=== PATIENT | male | born 1980 | race Caucasian/White ===

== ENCOUNTER 2020-06-04 13:46 | Emergency (ER) | payer OTHER, SELFPAY ==
[2020-06-04 13:55] VITALS: BP 123/83; PULSE 91; RESP 14; TEMP 36.4; O2SAT 98; BMI 28.2
--- NOTE | 2020-06-04 14:08 | ED_ITS ---
[facility] [place] Disposition Clinical Impression: Exposure to COVID-19 virus Disposition: Home, Self-Care Condition on Discharge: Good Instructions: Preventing the Spread of Coronavirus Discharge Instructions Referrals: PCP,No [Primary Care Provider] - Time of Disposition: 14:14 Medical Decision Making - [place] Inquiry Pt receiving controlled substance: No Orders (Tests/Meds): ORDERS Category Date Time Status Covid-19 Nasal PCR Sendout P&C Routine Lab 06/04/20 13:48 Ordered [facility] [place] HPI - General Stated complaint: covid exposure Time Seen by Provider: 06/04/20 14:08 - History of Present Illness Provider Complaint: Patient requesting a COVID test. 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 No symptoms at this time. Relieving factors: none Exacerbating factors: none Associated symptoms: denies other symptoms Treatments prior to arrival: none [facility] History - Hepatitis A Screen Attestation statement:: This patient has been screened for Hepatitis A risk factors. I have reviewed the patient's past medical history: Yes ROS Obtained: Yes All systems reviewed & no additional complaints Physical Exam - General General appearance: alert, in no apparent distress - Head Head exam: normocephalic - Eye Eye exam: Present: PERRL - ENT ENT exam: Present: normal oropharynx - Chest Chest inspection: Present: symmetric chest wall rise - Respiratory Respiratory exam: Present: normal lung sounds bilaterally - Cardiovascular Cardiovascular exam: Present: regular rate, normal rhythm - Neurological Exam Neurological exam: Present: alert, oriented X3 - Psychiatric Psychiatric exam: Present: normal affect, normal mood - Skin Skin exam: Present: warm, dry
[2020-06-04 14:17] VITALS: BP 123/83; PULSE 91; RESP 14; TEMP 36.4; O2SAT 98
[2020-06-05 11:52] LABS: Covid-19 Nasal PCR Sendout P&C Negative
== END 2020-06-04 14:20 | disposition home or self-care (01) ==
PROVIDERS: Emergency Provider Physician Assistant
DX: Z20.822 Contact with and (suspected) exposure to COVID-19 (principal)
CPT/HCPCS: 99202; G0463; U0004

== ENCOUNTER → 2022-06-07 11:20 | Outpatient (CLI) | payer OTHER, SELFPAY ==
[2022-06-07 11:29] LABS: Microscopic, Urine URINE MICROSCOPIC (MICROSCOPIC)
[2022-06-07 11:47] LABS: Appearance,Urine CLEAR (Clear); Bilirubin,Urine Negative (Negative); Blood, Urine Negative (Negative); Color,Urine YELLOW (Yellow); Glucose,Urine (UA) Negative (Negative); Ketones,Urine Negative (Negative); Leukocyte Esterase,Urine Negative (Negative); Nitrate,Urine Negative (Negative); PH,Urine 6.5 (5.0-8.5); Protein,Urine Negative (Negative); Urobilinogen,Urine 0.2 EU/dl (0.2)
[2022-06-07 11:59] LABS: Bacteria,Urine Trace /lpf; Squamous Epithelial Cell,Urine Occasional #/hpf (0-5)
[2022-06-07 12:46] LABS: Alanine Aminotransferase 12 U/L (12-78); Albumin Level 4.7 g/dl (3.5-5.0); Albumin/Globulin Ratio 1.9 (1.1-1.8); Alkaline Phosphatase 66 U/L (38-126); Anion Gap 13.3 mEq/L (5-15); Aspartate Amino Transferase 20 U/L (17-59); Bilirubin,Total 0.8 mg/dl (0.2-1.3); Blood Urea Nitrogen 11 mg/dl (9-20); Calcium 9.2 mg/dl (8.4-10.2); Carbon Dioxide 26 mmol/L (22.0-30.0); Chloride 107 mmol/L (98-107); Estimated Glomerular Filt Rate 92 ml/min (>60); GFR (African American) 111 ML/MIN (>60); Globulin 2.5 g/dL (1.3-3.2); Glucose 103 mg/dl (74-100); Potassium 4.3 mmoL/L (3.5-5.1); Sodium 142 mmol/L (136-145); Total Protein,Serum 7.2 g/dl (6.3-8.2)
== END ==
PROVIDERS: Visit Provider Chiropractor
DX: N18.9 Chronic kidney disease, unspecified (principal)
CPT/HCPCS: 36415; 80053; 81001

== ENCOUNTER 2022-07-11 08:17 | Emergency (ER) | payer OTHER, SELFPAY ==
[2022-07-11 08:24] VITALS: BP 151/87; PULSE 65; RESP 20; O2SAT 100
[2022-07-11 08:32] VITALS: BP 151/87; PULSE 77; RESP 16; TEMP 36.7; O2SAT 99; BMI 28.2
[2022-07-11 08:44] VITALS: BP 139/83; PULSE 61; RESP 20; O2SAT 100
--- NOTE | 2022-07-11 08:51 | CT_ITS ---
FINAL REPORT CLINICAL HISTORY: left sided flank pain FINDINGS: Axial CT images of the abdomen and pelvis were obtained without intravenous contrast. Coronal reformatted images were also obtained.This study was performed with techniques to keep radiation doses as low as reasonably achievable (ALARA). Individualized dose reduction techniques using automated exposure control or adjustment of mA and/or kV according to the patient's size were employed. Abdomen: The lung bases are clear. There are multiple small bilateral nonobstructing renal stones measuring less than 3 mm. There is mild left hydronephrosis and hydroureter secondary to a 3 mm obstructing stone in the proximal left ureter at the L4-5 level. The gallbladder is present. The liver, spleen and pancreas have an unremarkable, unenhanced appearance. No mass or adenopathy is seen. No inflammatory process is identified. There is a small umbilical hernia containing fat. Pelvis: The appendix is normal. No mass or abnormal fluid collection is identified. There is small inguinal hernias containing fat. IMPRESSION: Mild left hydronephrosis and hydroureter secondary to a 3 mm stone in the proximal left ureter. Multiple small bilateral nonobstructing renal stones less than 3 mm. Reviewed, Interpreted and Dictated by Francois Acevedo III, MD Transcribed by Debra Burrows Authenticated and [facility]
[2022-07-11 08:56] LABS: Microscopic, Urine URINE MICROSCOPIC (MICROSCOPIC)
[2022-07-11 09:00] VITALS: BP 129/81; PULSE 69; RESP 18; O2SAT 99
[2022-07-11 09:07] LABS: Basophils # 0.1 K/mm3 (0-0.2); Basophils % 1.4 % (0.1-2.0); Eosinophils # 0.1 K/mm3 (0.0-0.4); Eosinophils % 1.5 % (0.1-12.0); Hematocrit 49.9 % (42.0-52.0); Hemoglobin 16.4 g/dL (14.1-18.0); Lymphocytes # 1.7 K/mm3 (0.7-4.5); Lymphocytes % 19.7 % (10-50); Mean Corpuscular HGB Conc 32.9 g/dL (31.8-35.4); Mean Corpuscular Hemoglobin 29.1 pg (27.0-31.2); Mean Corpuscular Volume 88.4 fl (80-94); Mean Platelet Volume 7.9 fl (7.4-10.4); Monocytes # 0.4 K/mm3 (0.1-1.0); Monocytes % 4.4 % (1.7-9.3); Neutrophils # 6.1 K/mm3 (1.8-7.8); Neutrophils % 72.9 % (37.0-80.0); Platelet Count 377 K/mm3 (142-424); Red Blood Count 5.64 M/mm3 (4.60-6.20); White Blood Count 8.3 K/mm3 (4.8-10.8)
[2022-07-11 09:09] LABS: Chloride 106 mmol/L (98-107); Potassium 4.7 mmoL/L (3.5-5.1); Sodium 143 mmol/L (136-145)
[2022-07-11 09:12] LABS: Alanine Aminotransferase 19 U/L (12-78); Albumin Level 4.9 g/dl (3.5-5.0); Albumin/Globulin Ratio 1.4 (1.1-1.8); Alkaline Phosphatase 88 U/L (38-126); Anion Gap 14.7 mEq/L (5-15); Aspartate Amino Transferase 23 U/L (17-59); Bilirubin,Total 1.1 mg/dl (0.2-1.3); Blood Urea Nitrogen 14 mg/dl (9-20); Calcium 9.4 mg/dl (8.4-10.2); Carbon Dioxide 27 mmol/L (22.0-30.0); Creatinine Clearance Estimated 133 mL/min (50-200); Estimated Glomerular Filt Rate 81 ml/min (>60); GFR (African American) 98 ML/MIN (>60); Globulin 3.4 g/dL (1.3-3.2); Glucose 114 mg/dl (74-100); Total Protein,Serum 8.3 g/dl (6.3-8.2)
[2022-07-11 09:15] LABS: Appearance,Urine CLEAR (Clear); Bilirubin,Urine Negative (Negative); Blood, Urine 3+ (Negative); Color,Urine YELLOW (Yellow); Glucose,Urine (UA) Negative (Negative); Ketones,Urine Negative (Negative); Leukocyte Esterase,Urine Negative (Negative); Nitrate,Urine Negative (Negative); Protein,Urine Negative (Negative); Urobilinogen,Urine 0.2 EU/dl (0.2)
[2022-07-11 09:20] LABS: RBC,Urine 20-50 #/hpf (0-3)
--- NOTE | 2022-07-11 09:33 | HMH.EDGENADL ---
Discharge Plan Disposition Patient Disposition: Home, Self-Care Condition: Good Prescriptions Prescriptions: New tamsulosin [Flomax] 0.4 mg capsule 0.4 mg PO DAILY Qty: 14 0RF ketorolac 10 mg tablet 10 mg PO Q8H PRN (Reason: pain) Qty: 14 0RF Referrals Follow up/Referrals: Provider,Referral, [Primary Care Provider] - See instructions Clinical Impressions Clinical Impression: Ureterolithiasis Instructions Patient Instructions: DI for Acute Abdominal Pain Discharge ED Provider: Osmany Montano General Adult HPI General Chief complaint: Abdominal Pain Stated complaint: possible kidney stones Time Seen by Provider: 07/11/22 09:00 Mode of Arrival: Ambulatory Source of Information: Patient Limitations: No Limitations Description of Symptoms (Recalled from ER Triage Doc. by RN): pt comes in with c/o left sided flank pain that began this am. pt reports chronic back pain but this pain feels different . reports also having a kidney stone in the past. History of Present Illness HPI narrative: This is a 42-year-old male with history of chronic back pain, nephrolithiasis presenting with back pain. Patient states the back pain began acutely around 4 AM on 07/11. It woke him up from sleep. It was initially sharp, but since that time has waxed and waned between a 5-9 out of 10 in intensity. Sharp, stabbing, does not radiate. Not made better by anything, not made worse by anything in particular, it comes and goes on its own. He has had nausea without vomiting. Denies fevers, chills, diaphoresis, dysuria, hematuria, constipation, neurologic deficits of lower extremities, bowel or bladder dysfunction, hematochezia, or any other concerns. Related Data Previous Rx's Medication Instructions Recorded ketorolac 10 mg tablet 10 mg PO Q8H PRN pain #14 tabs 07/11/22 tamsulosin 0.4 mg capsule (Flomax) 0.4 mg PO DAILY #14 caps 07/11/22 Allergies Allergy/AdvReac Type Severity Reaction Status Date / Time latex Allergy Verified 07/11/22 10:31 zolpidem [From Ambien] Allergy Verified 07/11/22 10:31 [facility] Disclaimer: The information contained in this section may have been updated after the patient was seen, as this information can be updated by other users. Social History Smoking Status: Never smoker alcohol intake: never current occupational status: other Travel in the last 8 weeks: None ROS Obtained: Yes All systems reviewed & no additional complaints except as documented Physical Exam General General appearance: alert and in no apparent distress Head Head exam: atraumatic, normocephalic and normal inspection Eye Eye exam: Present normal appearance, PERRL and EOMI ENT ENT exam: Present normal exam, normal oropharynx, mucous membranes moist, TM's normal bilaterally and normal external ear exam Neck Neck exam: Present normal inspection, full ROM and trachea midline; Absent meningismus or lymphadenopathy Chest Chest inspection: Present normal inspection and symmetric chest wall rise; Absent tenderness Respiratory Respiratory exam: Present normal lung sounds bilaterally; Absent respiratory distress Cardiovascular Cardiovascular exam: Present regular rate and normal rhythm; Absent JVD Abdominal Exam Abdominal exam: Present soft and normal bowel sounds; Absent distention, tenderness or guarding Extremities Exam Extremities exam: Present normal inspection, full ROM and normal capillary refill; Absent calf tenderness Back Exam Back exam: Present normal inspection and CVA tenderness (L); Absent tenderness or CVA tenderness (R) Neurological Exam Neurological exam: Present alert and oriented X3 Psychiatric Psychiatric exam: Present normal affect and normal mood Skin Skin exam: Present warm, dry, intact and normal color; Absent rash Lymphatic Lymphatic Findings: no adenopathy Medical Decision Making Medical Records Medical records reviewed: Yes I r
--- NOTE | 2022-07-11 10:26 | PC.NURSE ---
contacted rad staff to check on status of ct report, states they are reading it now.
--- NOTE | 2022-07-11 11:02 | PC.NURSE ---
contacted rad to check on status of CT, states there is preliminary, she is sending it down.
[2022-07-11 11:05] VITALS: BP 122/81; PULSE 59; RESP 16; O2SAT 98
[2022-07-11 11:49] VITALS: BP 136/82; PULSE 60; RESP 18; TEMP 36.7; O2SAT 99
== END 2022-07-11 11:50 | disposition home or self-care (01) ==
PROVIDERS: Emergency Provider Emergency Medicine
DX: N20.0 Calculus of kidney (principal); M54.9 Dorsalgia, unspecified; G89.29 Other chronic pain
CPT/HCPCS: 74176; 80053; 81001; 85025; 96374; 99285

== ENCOUNTER 2022-10-04 20:12 | Emergency (ER) | payer OTHER, SELFPAY ==
[2022-10-04 20:14] VITALS: BP 146/87; PULSE 79; RESP 16; TEMP 36.8; O2SAT 98; BMI 28.2
--- NOTE | 2022-10-04 20:25 | XR_ITS ---
PROCEDURE INFORMATION: Exam: XR Left Elbow Exam date and time: 10/04/2022 8:27 PM Age: 42 years old Clinical indication: Pain; Elbow; Left; Additional info: Left arm pain TECHNIQUE: Imaging protocol: Radiologic exam of the left elbow. Views: 3 or more views. COMPARISON: CR XR HUMERUS LT 04/10/2022 20:25 FINDINGS: Bones/joints: No acute fracture or dislocation. Soft tissues: Normal. IMPRESSION: No acute fracture or dislocation.
--- NOTE | 2022-10-04 20:25 | XR_ITS ---
PROCEDURE INFORMATION: Exam: XR Left Humerus Exam date and time: 10/04/2022 8:25 PM Age: 42 years old Clinical indication: Pain; Upper arm; Left; Additional info: Left arm pain TECHNIQUE: Imaging protocol: Radiologic exam of the left humerus. Views: 2 or more views. COMPARISON: No relevant prior studies available. FINDINGS: Bones/joints: No acute fracture or dislocation. Soft tissues: Normal. IMPRESSION: No acute fracture or dislocation.
--- NOTE | 2022-10-04 20:33 | HMH.EDUPEXT ---
Discharge Plan Disposition Patient Disposition: Home, Self-Care Chief Complaint: Extremity Injury, Upper Prescriptions Prescriptions: No Action cetirizine 10 mg Tablet 10 mg PO DAILY atorvastatin [Lipitor] 10 mg Tablet 10 mg PO DAILY tramadol [Ultram] 50 mg Tablet 50 mg PO BID PRN (Reason: Pain) albuterol 90 mcg/actuation Aerosol See Rx Instructions .ROUTE .COMPLEX Rx Instructions: take puffs PRN when needed for wheezing fluticasone propionate [Flonase] 50 mcg/actuation [place],Suspension 1 spray INTRANASAL DAILY Rx Instructions: administer into each nostril cholecalciferol (vitamin D3) [Vitamin D3] 50 mcg (2,000 unit) Capsule 50 mcg PO DAILY Referrals Follow up/Referrals: Provider,Referral, [Primary Care Provider] - See instructions Activity Restrictions/Add. Instructions Additional Instructions/Restrictions: call [facility] in am for follow [phone] Clinical Impressions Clinical Impression: Biceps muscle tear Instructions Patient Instructions: Trauma Discharge ED Provider: Maria Dolores (ED)Jovanni Upper Extremity HPI General Chief Complaint: Extremity Injury, Upper Stated Complaint: ao 10/04@1900 at home injured L arm Time Seen by Provider: 10/04/22 20:33 Mode of Arrival: Ambulatory Source of Information: Patient and Medical Record Limitations: No Limitations Description of Symptoms (Recalled from ER Triage Doc. by RN): Pt arrives to ED with c/o left arm pain that radiates from his shoulder to his elbow. Pt stated he was trimming bushes outsdie when he felt a pop in his elbow, causing severe pain. Denies any trauma to extremity. History of Present Illness HPI narrative: using bonita and felt pop to lt biceps with pain and dec rom and pain complaint: injury to: left, arm and elbow Onset (ago): hour(s) Other Extremity Injury: Left: elbow Other injuries: none Handedness: left Place: home Severity: moderate Context: other (trimming ) Associated symptoms: denies other symptoms Related Data Home Medications Medication Instructions Recorded Confirmed albuterol 90 mcg/actuation aerosol See Rx Instructions .Route 10/04/22 10/04/22 inhaler .COMPLEX Asthma atorvastatin 10 mg tablet (Lipitor) 10 mg PO DAILY Cholesterol 10/04/22 10/04/22 cetirizine 10 mg tablet 10 mg PO DAILY Allergy symptoms 10/04/22 10/04/22 cholecalciferol (vitamin D3) 50 50 mcg PO DAILY Cholesterol 10/04/22 10/04/22 mcg (2,000 unit) capsule (Vitamin D3) fluticasone propionate 50 1 spray intranasal DAILY Allergy 10/04/22 10/04/22 mcg/actuation nasal symptoms spray,suspension tramadol 50 mg tablet 50 mg PO BID PRN Pain 10/04/22 10/04/22 Allergies Allergy/AdvReac Type Severity Reaction Status Date / Time latex Allergy Verified 07/11/22 10:31 zolpidem [From Ambien] Allergy Verified 07/11/22 10:31 [facility] Disclaimer: The information contained in this section may have been updated after the patient was seen, as this information can be updated by other users. Social History Smoking Status: Never smoker alcohol intake: never current occupational status: other Travel in the last 8 weeks: None ROS Obtained: Yes All systems reviewed & no additional complaints except as documented Physical Exam General General appearance: alert Head Head exam: normocephalic Eye Eye exam: Present PERRL and EOMI ENT ENT exam: Present mucous membranes moist Neck Neck exam: Present trachea midline Respiratory Respiratory exam: Present normal lung sounds bilaterally; Absent respiratory distress Cardiovascular Cardiovascular exam: Present regular rate Expanded Upper Extremity Exam Left: Shoulder exam: Present normal inspection Elbow exam: Present other (tenderness at insertion of biceps at elbow and neurovascular ok - able to supination) Neuromotor exam: Normal wrist extension Vascular
[2022-10-04 21:00] VITALS: BP 120/80; PULSE 77; O2SAT 98
[2022-10-04 21:57] VITALS: BP 120/80; PULSE 77; RESP 18; TEMP 36.6; O2SAT 99
== END 2022-10-04 22:00 | disposition home or self-care (01) ==
PROVIDERS: Emergency Provider Emergency Medicine
DX: S46.122A Laceration of muscle, fascia and tendon of long head of biceps, left arm, initial encounter (principal); X58.XXXA Exposure to other specified factors, initial encounter; Y93.H2 Activity, gardening and landscaping
CPT/HCPCS: 73060; 73080; 99283; 99284